=== PATIENT | male | born 1965 | race Caucasian/White ===

== ENCOUNTER 2020-01-26 08:57 | Emergency (ER) | payer OTHER ==
[2020-01-26] MEDS ORDERED: ONDANSETRON 4 MG/2 ML VIAL ONE (10:41)
[2020-01-26] MEDS ORDERED: NA CHLORIDE 0.9% 500 ML ONE ×2 (10:41→12:06)
[2020-01-26] MEDS ORDERED: MORPHINE 4 MG/ML SYR ONE (10:41)
--- NOTE | 2020-01-26 10:46 | RAD REPORT ---
EXAM DESCRIPTION: CT - Stone Protocol - 01/26/2020 10:27 am CLINICAL HISTORY: urinary retention;Abd painleft flank pain COMPARISON: No comparisons TECHNIQUE: Axial 5 mm thick images were obtained without oral or IV contrast. The [id number] span s the entirety of the system including uppermost abdomen and lung bases. All CT scans are performed using dose optimization technique as appropriate and may include automated exposure control or mA/KV adjustment according to patient size. FINDINGS: A 2 millimeter left UVJ calculus is present causing [id number] left-sided hydronephr osis. Left kidney is edematous relative to the right and there is stranding in the fatty tissues jeffery cent to the kidney and the ureter on the left. No other obstructing or nonobstructing calculi. No rig ht-sided hydronephrosis or right-sided calculus. No suspicious renal masses. Isodense masses and pyel onephritis are not excluded on a stone protocol CT scan. No urinary bladder suspicious finding. No si gnificant adrenal finding. Imaged portions of the liver, spleen and pancreas show no suspicious findings on non-contrast imaging . No gallbladder or biliary tree abnormality identified. The liver does contain a 15 millimeter round ed low-density mass in the subcapsular dome on the right. Incidental cyst is most likely but this is not fully characterized. A few small accessory splenic nodules are present and there is a 14 millimet er low-density mass in the inferior spleen is nonspecific. Significance is doubtful. No acute bowel finding seen. Patient does have sigmoid diverticulosis without acute component. Append ix is normal. No mass or bulky lymphadenopathy. A small fat only umbilical hernia is present. Bilateral small fat f illed inguinal hernias are present. No free air, free fluid or pneumatosis. No acute bone finding. Patient has advanced degenerative disc disease at L5-S1. Central canal detail is inherently limited. IMPRESSION: Mild to moderate hydronephrosis secondary to a 2 mm left UVJ calculus. Isodense masses and pyelonephritis are not excluded on stone protocol technique. Additional nonacute findings detailed in the body of the report.
[2020-01-26 11:04] LABS: Basophils % 0.2 % (0-1.3); Hematocrit 49.7 % (39.6-49.0); Lymphocytes % 10.8 % (15.3-44.8); MPV 10.1 fL (7.6-11.3); RBC Red Blood Cell Count 5.58 M/uL (4.33-5.43)
[2020-01-26] MEDS ORDERED: TAMSULOSIN 0.4 MG SR CAP ONE (11:25)
[2020-01-26] MEDS ORDERED: KETOROLAC 30 MG/ML INJ ONE (11:26)
[2020-01-26 11:31] LABS: Potassium 4.5 mmol/L (3.5-5.1)
[2020-01-26] MEDS ORDERED: HYDROCODONE/APAP 10/325 TAB ONE (12:47)
--- NOTE | 2020-01-26 14:20 | ER ---
Nurse's Notes [facility] Name: Yoseph Aguilar Age: 54 yrs Sex: Male : 1965 Arrival Date: 01/26/2020 Time: 09:00 Bed 25 Private MD: Diagnosis: Hydronephrosis with renal and ureteral calculous obstruction Presentation: 01/25 09:19 Chief complaint: Patient states: Left flank pain and unable to urinate since 0245 this jl7 morning. Coronavirus screen: The patient has NOT traveled to a country currently being monitored by the CDC within the last 14 days. Proceed with normal triage procedures. Ebola Screen: No symptoms or risks identified at this time. Initial Sepsis Screen: Does the patient meet any 2 criteria? No. Patient's initial sepsis screen is negative. Does the patient have a suspected source of infection? No. Patient's initial sepsis screen is negative. Risk Assessment: Do you want to hurt yourself or someone else? Patient reports no desire to harm self or others. Onset of symptoms was January 26, 2020 at 02:45. 09:19 Method Of Arrival: Ambulatory jl7 09:19 Acuity: KIMBERLEY 3 jl7 Triage Assessment: 09:21 General: Appears in no apparent distress. uncomfortable, Behavior is calm, cooperative, jl7 appropriate for age. Pain: Complains of pain in left flank Pain currently is 9 out of 10 on a pain scale. Neuro: Level of Consciousness is awake, alert, obeys commands, Oriented to person, place, time, situation. Cardiovascular: Patient's skin is warm and dry. Respiratory: Airway is patent Respiratory effort is even, unlabored, Respiratory pattern is regular, symmetrical. GI: Abdomen is non-distended, Reports nausea, vomiting. : Reports inability to void, since 0245 pain in left flank(s). Derm: Skin is pink, warm \T\ dry. Historical: - Allergies: 09:21 No Known Allergies; jl7 - Home Meds: : None [Active]; jl7 - PMHx: 09:21 None; jl7 - Immunization history:: Adult Immunizations up to date. - Social history:: Smoking status: Patient denies any tobacco usage or history of. Screenin:10 Abuse screen: Denies threats or abuse. Denies injuries from another. Nutritional aj1 screening: No deficits noted. Tuberculosis screening: No symptoms or risk factors identified. 13:35 Fall Risk None identified. aj1 Assessment: 10:10 General: Appears in no apparent distress. uncomfortable, Behavior is calm, cooperative, aj1 appropriate for age. Pain: Complains of pain in left lower quadrant Pain radiates to back Pain currently is 8 out of 10 on a pain scale. Neuro: Level of Consciousness is awake, alert, obeys commands, Oriented to person, place, time, situation, Speech is normal, Facial symmetry appears normal. Cardiovascular: Patient's skin is warm and dry. Respiratory: Airway is patent Respiratory effort is even, unlabored, Respiratory pattern is regular, symmetrical. GI: Abdomen is distended, Bowel sounds present X 4 quads. Abd is soft and non tender X 4 quads. Reports nausea, vomiting, Patient currently denies diarrhea. : Reports inability to void. EENT: No signs and/or symptoms were reported regarding the EENT system. Derm: No signs and/or symptoms reported regarding the dermatologic system. Skin is pink, warm \T\ dry. normal. Musculoskeletal: No signs and/or symptoms reported regarding the musculoskeletal system. Circulation, motion, and sensation intact. 11:27 Reassessment: Patient appears in no apparent distress at this time. No changes from aj1 previously documented assessment. Patient and/or family updated on plan of care and expected duration. Pain level reassessed. Patient is alert, oriented x 3, equal unlabored respirations, skin warm/dry/pink. 12:30 Reassessment: Patient appears in no apparent distress at this time. No changes from aj1 previously documented assessment. Patient and/or family updated on plan of care and expected duration. Pain level reassessed. Patient is alert, oriented x 3, equal unlabored respirations, skin warm/dry/pink. 13:34 Reassessment: Patient appears in no apparent distress at this time. No changes from aj1 previously documented assessment. Patient and/or family updated on plan of care and expected duration. Pain level reassessed. Patient is alert, oriented x 3, equal unlabored respirations, skin warm/dry/pink. Vital Signs: 09:19 BP 151 / 88; Pulse 58; Resp 17; Temp 98.2; Pulse Ox 99% ; Weight 99.79 kg; Height 6 ft. jl7 (182.88 cm); Pain 9/10; 11:28 BP 147 / 109; Pulse 50; Resp 18; Pulse Ox 98% on R/A; aj1 12:54 BP 156 / 92; Pulse 56; Resp 18; Pulse Ox 96% on R/A; aj1 13:34 BP 148 / 95; Pulse 58; Resp 18; Pulse Ox 99% on R/A; aj1 09:19 Body Mass Index 29.84 (99.79 kg, 182.88 cm) jl7 ED Course: 09:00 Patient arrived in ED. ag5 09:20 Triage completed. jl7 09:21 Arm band placed on right wrist. Patient placed in waiting room, in view of staff jl7 members, Patient notified of wait time. 10:07 Mega Ramirez FNP-C [facility] la1 10:07 Amrik Tobias MD is Attending Physician. la1 10:10 Patient has correct armband on for positive identification. Bed in low position. Call aj1 light in reach. Side rails up X 1. Pulse ox on. NIBP on. 10:10 No provider procedures requiring assistance completed. aj1 10:17 Divya Brooke, RN is Primary Nurse. aj1 10:27 CT Stone Protocol In Process Unspecified. EDMS 10:55 Initial lab(s) drawn, by me, sent to lab. Inserted saline lock: 22 gauge in left hand, aj1 using aseptic technique. Blood collected. 13:34 IV discontinued, intact, bleeding controlled, No redness/swelling at site. Pressure aj1 dressing applied. Administered Medications: 11:00 Drug: Zofran (Ondansetron) 4 mg Route: IVP; Site: left antecubital; aj1 12:04 Follow up: Response: No adverse reaction aj1 11:00 Drug: morphine 4 mg Route: IVP; Site: left antecubital; aj1 12:05 Follow up: Response: No adverse reaction aj1 11: Drug: NS 0.9% 500 ml Route: IV; Rate: bolus; Site: left antecubital; aj1 12:06 Follow up: IV Status: Completed infusion; IV Intake: 500ml aj 11:25 Drug: TORadol - Ketorolac 15 mg Route: IVP; Site: left hand; aj1 12:06 Follow up: Response: No adverse reaction aj1 11:25 Drug: Flomax 0.4 mg Route: PO; aj1 12:06 Follow up: Response: No adverse reaction aj1 12:04 Drug: NS 0.9% 500 ml Route: IV; Rate: bolus; Site: left hand; aj1 13:35 Follow up: IV Status: Completed infusion; IV Intake: 500ml aj1 12:54 Drug: [place] 10 mg-325 mg 1 tabs Route: PO; aj1 13:36 Follow up: Response: No adverse reaction aj1 Intake: 12:06 IV: 500ml; Total: 500ml. aj1 13:35 IV: 500ml; Total: 1000ml. aj1 Outcome: 13:26 Discharge ordered by MD. la1 13:35 Discharged to home ambulatory. aj1 13:35 Condition: good 13:35 Discharge instructions given to patient, Instructed on discharge instructions, follow up and referral plans. no drinking with medication, no driving heavy equipment, medication usage, Demonstrated understanding of instructions, follow-up care, medications, Prescriptions given X 4. 13:37 Patient left the ED. aj1 Signatures: Dispatcher [employer] EDDivya Burns, RN RN aj1 Mega Ramirez, CASHIER HOST/HOSTESS-C CASHIER HOST/HOSTESS-Cla1 Vitor Brannon RN RN jl7 [facility]
--- NOTE | 2020-01-26 14:21 | EDPHYS ---
Physician Documentation [facility] Name: Yoseph Aguilar Age: 54 yrs Sex: Male : 1965 Arrival Date: 01/26/2020 Time: 09:00 Bed 25 Private MD: ED Physician Amrik Tobias HPI: 01/25 10:22 This 54 yrs old Male presents to ER via Ambulatory with complaints of la1 Abdominal Pain. 10:22 The patient presents with abdominal pain abdominal distention in the left lower la1 quadrant. Onset: The symptoms/episode began/occurred this morning. The symptoms radiate to left back. Associated signs and symptoms: Pertinent positives: nausea and vomiting, urinary retention], Pertinent negatives: blood in stools, chest pain, constipation, diarrhea. The symptoms are described as sharp. Modifying factors: The symptoms are alleviated by nothing, the symptoms are aggravated by nothing. Severity of pain: At its worst the pain was moderate. The patient has not experienced similar symptoms in the past. Historical: - Allergies: 09:21 No Known Allergies; jl7 - Home Meds: 09:21 None [Active]; jl7 - PMHx: 09:21 None; jl7 - Immunization history:: Adult Immunizations up to date. - Social history:: Smoking status: Patient denies any tobacco usage or history of. ROS: 10:23 Constitutional: Negative for fever, chills, and weight loss, Eyes: Negative for injury, la1 pain, redness, and discharge, Neck: Negative for injury, pain, and swelling, Cardiovascular: Negative for chest pain, palpitations, and edema, Respiratory: Negative for shortness of breath, cough, wheezing, and pleuritic chest pain, Back: Negative for injury and pain. 10:23 MS/Extremity: Negative for injury and deformity, Skin: Negative for injury, rash, and discoloration, Neuro: Negative for headache, weakness, numbness, tingling, and seizure. 10:23 Abdomen/GI: Positive for abdominal pain, nausea and vomiting. 10:23 : Positive for difficulty urinating. Exam: 10:23 Constitutional: This is a well developed, well nourished patient who is awake, alert, la1 and in no acute distress. Head/Face: Normocephalic, atraumatic. Eyes: Periorbital areas with no swelling, redness, or edema. ENT: Mucous membranes moist. Neck: Trachea midline Chest/axilla: Normal chest wall appearance and motion. Cardiovascular: Regular rate and rhythm with a normal S1 and S2. Respiratory: Lungs have equal breath sounds bilaterally, clear to auscultation Abdomen/GI: Soft, non-tender, with normal bowel sounds. mild abdominal distension Back: No spinal tenderness. No costovertebral tenderness. Skin: Warm, dry with normal turgor. Normal color with no rashes, no lesions, and no evidence of cellulitis. Vital Signs: 09:19 BP 151 / 88; Pulse 58; Resp 17; Temp 98.2; Pulse Ox 99% ; Weight 99.79 kg; Height 6 ft. jl7 (182.88 cm); Pain 9/10; 11:28 BP 147 / 109; Pulse 50; Resp 18; Pulse Ox 98% on R/A; aj1 12:54 BP 156 / 92; Pulse 56; Resp 18; Pulse Ox 96% on R/A; aj1 13:34 BP 148 / 95; Pulse 58; Resp 18; Pulse Ox 99% on R/A; aj1 09:19 Body Mass Index 29.84 (99.79 kg, 182.88 cm) jl7 MDM: 10:07 Patient medically screened. la1 13:24 Data reviewed: vital signs, nurses notes, lab test result(s), radiologic studies, and la1 as a result, I will discharge patient. Data interpreted: Pulse oximetry: on room air is 96 %. Interpretation: normal. Counseling: I had a detailed discussion with the patient and/or guardian regarding: the historical points, exam findings, and any diagnostic results supporting the discharge/admit diagnosis, lab results, radiology results, the need for outpatient follow up, a family practitioner, a urologist, the need to transfer to another facility. Special discussion: Based on the patient's Hx, exam, and Dx evaluation, there is no indication for emergent surgery or inpatient Tx. It is understood by the patient/guardian that if the Sx's persist or worsen they need to return immediately for re-evaluation. 01/25 10:17 Order name: CBC with Diff; Complete Time: 11:17 la1 01/25 10:17 Order name: BMP; Complete Time: 11:33 la1 01/25 10:17 Order name: CT Stone Protocol; Complete Time: 11:33 la1 01/25 13:27 Order name: Urine Dipstick--Ancillary (enter results) bd 01/25 10:09 Order name: Bladder Scanner; Complete Time: 10:59 la1 01/25 10:09 Order name: Urine Dipstick-Ancillary (obtain specimen); Complete Time: 13:36 la1 01/25 10:17 Order name: IV; Complete Time: 10:59 la1 Administered Medications: 11:00 Drug: Zofran (Ondansetron) 4 mg Route: IVP; Site: left antecubital; aj1 12:04 Follow up: Response: No adverse reaction aj1 11:00 Drug: morphine 4 mg Route: IVP; Site: left antecubital; aj1 12:05 Follow up: Response: No adverse reaction aj1 11:00 Drug: NS 0.9% 500 ml Route: IV; Rate: bolus; Site: left antecubital; aj1 12:06 Follow up: IV Status: Completed infusion; IV Intake: 500ml aj1 11:25 Drug: TORadol - Ketorolac 15 mg Route: IVP; Site: left hand; aj1 12:06 Follow up: Response: No adverse reaction aj1 11:25 Drug: Flomax 0.4 mg Route: PO; aj1 12:06 Follow up: Response: No adverse reaction aj1 12:04 Drug: NS 0.9% 500 ml Route: IV; Rate: bolus; Site: left hand; aj1 13:35 Follow up: IV Status: Completed infusion; IV Intake: 500ml aj1 12:54 Drug: [place] 10 mg-325 mg 1 tabs Route: PO; aj1 13:36 Follow up: Response: No adverse reaction aj1 Disposition: 17:20 Co-signature as Attending Physician, Amrik Tobias MD I agree with the assessment and kdr plan of care. Disposition: 01/26/20 13:26 Discharged to Home. Impression: Hydronephrosis with renal and ureteral calculous obstruction. - Condition is Stable. - Discharge Instructions: Kidney Stones, Hydronephrosis. - Prescriptions for Cipro 500 mg Oral Tablet - take 1 tablet by ORAL route every 12 hours for 10 days; 20 tablet. Tylenol- Codeine #3 300-30 mg Oral Tablet - take 2 tablet by ORAL route every 6 hours As needed; 30 tablet. Flomax 0.4 mg Oral Capsule, Sust. Release 24 hr - take 1 capsule by ORAL route once daily 1/2 hour following the same meal each day; 30 capsule. Zofran 4 mg Oral Tablet - take 1 tablet by ORAL route every 12 hours As needed; 6 tablet. - Medication Reconciliation Form, Thank You Letter, Antibiotic Education, Prescription Opioid Use form. - Follow up: Private Physician; When: 2 - 3 days; Reason: Recheck today's complaints, Re-evaluation by your physician. Follow up: Emergency Department; When: As needed; Reason: Fever > 102 F, If symptoms return, Worsening of condition. - Problem is new. - Symptoms have improved. Signatures: Dispatcher [employer] EDDivya Burns, RN RN aj1 Amrik Tobias MD MD kdr Mega Ramirez, PHARMACY TECHNICIAN INFUSION-C PHARMACY TECHNICIAN INFUSION-Cla1 Vitor Brannon RN RN jl7 Corrections: (The following items were deleted from the chart) 13:37 13:26 01/26/2020 13:26 Discharged to Home. Impression: Hydronephrosis with renal and aj1 ureteral calculous obstruction. Condition is Stable. Discharge Instructions: Kidney Stones, Hydronephrosis. Prescriptions for Cipro 500 mg Oral Tablet - take 1 tablet by ORAL route every 12 hours for 10 days; 20 tablet, Tylenol-Codeine #3 300-30 mg Oral Tablet - take 2 tablet by ORAL route every 6 hours As needed; 30 tablet, Flomax 0.4 mg Oral Capsule, Sust. Release 24 hr - take 1 capsule by ORAL route once daily 1/2 hour following the same meal each day; 30 capsule, Zofran 4 mg Oral Tablet - take 1 tablet by ORAL route every 12 hours As needed; 6 tablet. and Forms are Medication Reconciliation Form, Thank You Letter, Antibiotic Education, Prescription Opioid Use. Follow up: Private Physician; When: 2 - 3 days; Reason: Recheck today's complaints, Re-evaluation by your physician. Follow up: Emergency Department; When: As needed; Reason: Fever > 102 F, If symptoms return, Worsening of condition. Problem is new. Symptoms have improved. la1
[2020-01-26 14:29] LABS: Urine Blood TRACE (NEG); Urine Glucose NEGATIVE (NEG); Urine Protein NEGATIVE (NEG); Urine Specific Gravity >1.030 (1.005-1.030)
[2020-01-26 14:48] VITALS: TEMP 98.2
[2020-01-26 14:54] VITALS: BP 148/95; O2SAT 99
== END 2020-01-26 13:37 | disposition home or self-care (01) ==
LOC: ER 08:57
DX: N13.2 Hydronephrosis with renal and ureteral calculous obstruction (principal)
CPT/HCPCS: 96361; 85025; 80048; 36415; 81003; 76377; 74176; 96375; 96374; 99284; J7040 ×2; J2405